=== PATIENT | female | born 1965 | race Caucasian/White ===

== ENCOUNTER 2017-02-21 14:18 | Emergency (ER) | payer SELFPAY ==
[~2017-02-21] VITALS: Ht 165.1 cm; Wt 88.1 kg
[~2017-02-21 14:18] MED LIST: NOHOMEMEDS
[2017-02-21] MEDS ORDERED: EFFEXOR XR150 MG PO (14:27)
[2017-02-21] MEDS ORDERED: ADDERALL20 MG PO (14:27)
[2017-02-21] MEDS ORDERED: GLIMEPIRIDE2 MG PO (14:28)
[2017-02-21] MEDS ORDERED: AMPHETAMINE SAL20 MG PO (14:28)
[2017-02-21] MEDS ORDERED: PROAIR HFA8.5 GM IH (14:29)
[2017-02-21] MEDS ORDERED: FLOVENT 11120 INHALA IH (14:29)
[2017-02-21 14:51] LABS: HEMATOCRIT 46.9 % (36.0-46.0); MCH 28.4 PG (29.0-34.0); MCHC 32.8 G/DL (30.0-36.0); MCV 86.4 FL (83-99); RBC DIS.WIDTH-CV 13.7 % (11.8-14.6); RBC DIS.WIDTH-SD 42.9 % (39-53); RED BLOOD COUNT 5.43 M/uL (3.80-5.20); WHITE BLOOD COUNT 11.9 K/uL (4.1-10.2)
[2017-02-21 15:00] LABS: CHLORIDE 104 mEq/L (99-109); POTASSIUM 4.3 mEq/L (3.7-5.4); SODIUM 139 mEq/L (136-147)
[2017-02-21 15:01] LABS: GLUCOSE 117 mg/dL (70-99)
[2017-02-21 15:03] LABS: ANION GAP 12 MEQ/L (2-14)
[2017-02-21 15:05] LABS: GFR ESTIMATE (CALCULATED) > 59 mL/min/
[2017-02-21 15:06] LABS: UREA NITROGEN (BUN) 22 mg/dL (9-23)
[2017-02-21 15:12] LABS: TROP-I INTERPRETATION NEGATIVE; TROPONIN-I < 0.01 ng/mL (0.0-0.30)
[2017-02-21 15:29] LABS: MEAN PLAT.VOLUME 10.5 uM^3 (9.5-12.4); PLAT.SUFFICIENCY ADEQUATE; PLATELET COUNT 346 K/uL (156-360)
[2017-02-21 16:17] VITALS: BP 119/76
[2017-02-21 16:31] LABS: TROP-I INTERPRETATION NEGATIVE; TROPONIN-I 0.01 ng/mL (0.0-0.30)
== END 2017-02-21 18:16 | disposition home or self-care (01) ==
LOC: EME 14:18
PROVIDERS: Emergency Medicine
DX: R07.9 Chest pain, unspecified (principal); R00.0 Tachycardia, unspecified; Z87.442 Personal history of urinary calculi
CPT/HCPCS: 71020; 80048; 83880; 84484; 85027; 85379; 93005; 99281; 99285

== ENCOUNTER 2018-03-19 15:43 | Inpatient (IN) | payer BC ==
[~2018-03-19] VITALS: Ht 165.1 cm; Wt 97.1 kg
[~2018-03-19 15:43] MED LIST changes: +ADDERALL20 MG PO; +AMPHETAMINE SAL20 MG PO; +EFFEXOR XR150 MG PO; +FLOVENT 11120 INHALA IH; +GLIMEPIRIDE2 MG PO; +PROAIR HFA8.5 GM IH
[2018-03-19 16:32] LABS: BASOPHIL (%) 1.1 % (0-1); BASOPHIL COUNT 0.1 K/uL (0-0.1); EOSINOPHIL (%) 0.2 % (0-5); HEMATOCRIT 46.1 % (36.0-46.0); HEMOGLOBIN 15.3 G/DL (11.9-15.5); IMMATURE GRANULOCYTE (%) 1.1 % (0.0-0.7); LYMPHOCYTE (%) 12.1 % (15-42); LYMPHOCYTE COUNT 0.8 K/uL (1.0-2.8); MCH 29.8 PG (29.0-34.0); MCHC 33.2 G/DL (30.0-36.0); MCV 89.7 FL (83-99); MONOCYTE (%) 4.3 % (3-12); MONOCYTE COUNT 0.3 K/uL (0-0.8); NEUTROPHIL (%) 81.2 % (45-76); NEUTROPHIL COUNT 5.1 K/uL (1.8-6.4); PLATELET COUNT 278 K/uL (156-360); RBC DIS.WIDTH-CV 13.5 % (11.8-14.6); RBC DIS.WIDTH-SD 44.3 % (39-53); RED BLOOD COUNT 5.14 M/uL (3.80-5.20); WHITE BLOOD COUNT 6.3 K/uL (4.1-10.2)
[2018-03-19 16:35] LABS: APPEARANCE CLEAR ((CLEAR)); BILIRUBIN NEGATIVE; BLOOD NEGATIVE; COLOR YELLOW ((YELLOW)); GLUCOSE (STRIP) NEGATIVE; KETONES NEGATIVE; LEUKOCYTES NEGATIVE; NITRITE NEGATIVE; PROTEIN (STRIP) 30; SPECIFIC GRAVITY 1.023 (1.000-1.030); UCUL ADDED? NO; UROBILINOGEN 0.2 MG/DL (0.2-1.0)
[2018-03-19 16:44] LABS: ALBUMIN 3.8 g/dL (3.2-4.8)
[2018-03-19 16:45] LABS: CHLORIDE 105 mEq/L (99-109); POTASSIUM 4.3 mEq/L (3.7-5.4); SODIUM 137 mEq/L (136-147)
[2018-03-19 16:47] LABS: GLUCOSE 162 mg/dL (70-99); TOTAL PROTEIN 7.6 g/dL (6.4-8.3)
[2018-03-19 16:49] LABS: TOTAL BILIRUBIN 0.2 mg/dL (0.0-1.0)
[2018-03-19 16:50] LABS: ALKALINE PHOSPHATASE 92 IU/L (3-129)
[2018-03-19 16:51] LABS: CREATININE 0.9 mg/dL (0.6-1.3); GFR ESTIMATE (CALCULATED) > 59 mL/min/
[2018-03-19 16:52] LABS: AST (GOT) 43 IU/L (2-34); UREA NITROGEN (BUN) 13 mg/dL (9-23)
[2018-03-19] MEDS ORDERED: DEXTROAMP-AMPHE30 MG PO (16:52)
[2018-03-19] MEDS ORDERED: VENLAFAXINE HCL75 M3 PO (16:52)
[2018-03-19] MEDS ORDERED: VITAMIN D35000 UNIT PO (16:53)
[2018-03-19] MEDS ORDERED: BACTROBAN OINTM22 GM TP (16:53)
[2018-03-19 16:54] LABS: ALT (GPT) 40 IU/L (3-49)
[2018-03-19] MEDS ORDERED: LO-DOSE ASPIRIN81 M1 PO (16:54)
[2018-03-19] MEDS ORDERED: ALLEGRA ALLERG180 MG PO (16:54)
[2018-03-19] MEDS ORDERED: ONE DAILY1 EAC3 PO (16:54)
[2018-03-19 20:20] LABS: ERTH.SED.RATE 52 MM/HR (0-20)
[2018-03-19 20:32] LABS: C-REACTIVE PROTEIN 32.5 MG/L (0-10)
[2018-03-19 20:46] LABS: TROP-I INTERPRETATION NEGATIVE; TROPONIN-I < 0.01 ng/mL (0.0-0.30)
[2018-03-19 21:00] VITALS: BP 121/64
[2018-03-20 00:58] VITALS: BP 95/54
[2018-03-20 04:52] VITALS: BP 117/64
[2018-03-20 07:27] VITALS: BP 110/68
[2018-03-20 11:35] VITALS: BP 122/67
[2018-03-20 15:27] VITALS: BP 114/68
[2018-03-20 20:30] VITALS: BP 122/68
[2018-03-21] VITALS (7 sets, daily range): BP systolic 106–132; BP diastolic 57–67
[2018-03-21 03:57] LABS: HEMATOCRIT 40.4 % (36.0-46.0); HEMOGLOBIN 13.6 G/DL (11.9-15.5); MCH 29.6 PG (29.0-34.0); MCHC 33.7 G/DL (30.0-36.0); MCV 87.8 FL (83-99); NRBC (%) 0.2 /100 WBC (0-0); PLATELET COUNT 238 K/uL (156-360); RBC DIS.WIDTH-CV 13.6 % (11.8-14.6); WHITE BLOOD COUNT 12.1 K/uL (4.1-10.2)
[2018-03-21 04:06] LABS: CHLORIDE 106 mEq/L (99-109); POTASSIUM 3.7 mEq/L (3.7-5.4); SODIUM 137 mEq/L (136-147)
[2018-03-21 04:09] LABS: GLUCOSE 262 mg/dL (70-99)
[2018-03-21 04:11] LABS: CREATININE 0.8 mg/dL (0.6-1.3); GFR ESTIMATE (CALCULATED) > 59 mL/min/
[2018-03-21 04:12] LABS: UREA NITROGEN (BUN) 14 mg/dL (9-23)
[2018-03-21 04:55] LABS: ABS NEUTROPHIL COUNT 10.8; ATYPICAL LYMPHOCYTE 1.7 %; BURR CELLS 1+; EOSINOPHIL ABS CT 0; GIANT PLATELETS 2+; LYMPHOCYTES 7.8 % (15.0-45.0); METAMYELOCYTES 0.9 %; NUCLEATED RBC'S 0.9; PLAT.SUFFICIENCY ADEQUATE; SEG.NEUTROPHILS 62.6 % (46.0-76.0); TOX.VACUOLIZATION 2+; TOXIC GRANULATION 1+
[2018-03-21 06:21] LABS: BASE EXCESS -4.4 mEq/L (-3 to +3); BICARBONATE 18.8 mEq/L (22-26); CARBOXY HGB 1.5 % (0-5); COMMENTS - BLOOD GASES C+; DEVICE VENTI; FI02 50 %; METHEMOGLOBIN 1.2 % (0-1.5); O2 FLOW 10 L/MIN; O2 SATURATION (CALCULATED) 95.6 % (95-99); PCO2 29 mm Hg (35-45); PO2 65 mm Hg (80-100); SITE RR; pH 7.42 (7.35-7.45)
[2018-03-21 06:46] LABS: TROP-I INTERPRETATION NEGATIVE; TROPONIN-I 0.02 ng/mL (0.0-0.30)
[2018-03-21 07:19] LABS: TROP-I INTERPRETATION NEGATIVE; TROPONIN-I < 0.01 ng/mL (0.0-0.30)
[2018-03-21 07:23] LABS: CHLORIDE 106 MEQ/L (99-109); CREATININE 0.7 MG/DL (0.6-1.3); GFR ESTIMATE (CALCULATED) > 59 mL/min/; GLUCOSE 178 mg/dL (70-99); POTASSIUM 4.2 MEQ/L (3.7-5.4); SODIUM 134 MEQ/L (136-147); UREA NITROGEN (BUN) 14 mg/dL (9-23)
[2018-03-22] VITALS (7 sets, daily range): BP systolic 92–107; BP diastolic 51–65
[2018-03-22 08:21] LABS: HEMATOCRIT 39.5 % (36.0-46.0); HEMOGLOBIN 12.9 G/DL (11.9-15.5); MCH 28.9 PG (29.0-34.0); MCHC 32.7 G/DL (30.0-36.0); MCV 88.4 FL (83-99); PLATELET COUNT 199 K/uL (156-360); RBC DIS.WIDTH-CV 14.1 % (11.8-14.6); RBC DIS.WIDTH-SD 45.5 % (39-53); RED BLOOD COUNT 4.47 M/uL (3.80-5.20); WHITE BLOOD COUNT 12.7 K/uL (4.1-10.2)
[2018-03-22 08:50] LABS: ABS NEUTROPHIL COUNT 10.1; ANISOCYTOSIS 1+; ATYPICAL LYMPHOCYTE 1.7 %; BAND NEUTROPHILS 18.3 % (0-8.0); CHLORIDE 103 MEQ/L (99-109); CREATININE 0.6 MG/DL (0.6-1.3); EOSINOPHIL ABS CT 0; GFR ESTIMATE (CALCULATED) > 59 mL/min/; GLUCOSE 183 mg/dL (70-99); LYMPHOCYTES 17.4 % (15.0-45.0); MONOCYTES 1.7 % (0-9.0); PLAT.SUFFICIENCY ADEQUATE; POIKILOCYTOSIS 1+; POLYCHROMASIA 1+; POTASSIUM 3.8 MEQ/L (3.7-5.4); SEG.NEUTROPHILS 60.9 % (46.0-76.0); SODIUM 136 MEQ/L (136-147); UREA NITROGEN (BUN) 10 mg/dL (9-23)
[2018-03-23 04:22] VITALS: BP 98/56
[2018-03-23 07:26] VITALS: BP 103/57
[2018-03-23 11:44] VITALS: BP 99/62
[2018-03-23 16:19] VITALS: BP 100/60
[2018-03-23 21:06] VITALS: BP 112/75
[2018-03-23 23:56] VITALS: BP 103/55
[2018-03-24 03:49] VITALS: BP 116/64
[2018-03-24 07:07] VITALS: BP 114/56
[2018-03-24 11:32] VITALS: BP 113/60
[2018-03-24 16:13] VITALS: BP 103/60
[2018-03-24 19:45] VITALS: BP 129/71
[2018-03-24 23:15] VITALS: BP 121/64
[2018-03-25 03:45] VITALS: BP 108/58
[2018-03-25 07:06] VITALS: BP 116/55
[2018-03-25 11:10] VITALS: BP 120/74
[2018-03-25 15:22] VITALS: BP 141/55
[2018-03-25 19:58] VITALS: BP 126/73
[2018-03-26] VITALS (7 sets, daily range): BP systolic 117–135; BP diastolic 58–75
[2018-03-27 04:02] VITALS: BP 130/70
[2018-03-27 06:49] LABS: HEMATOCRIT 38.6 % (36.0-46.0); HEMOGLOBIN 12.4 G/DL (11.9-15.5); MCH 28.9 PG (29.0-34.0); MCHC 32.1 G/DL (30.0-36.0); NRBC (%) 0.4 /100 WBC (0-0); RBC DIS.WIDTH-SD 45.7 % (39-53); RED BLOOD COUNT 4.29 M/uL (3.80-5.20); WHITE BLOOD COUNT 22.3 K/uL (4.1-10.2)
[2018-03-27 06:56] LABS: PLATELET COUNT 509 K/uL (156-360)
[2018-03-27 07:07] LABS: CHLORIDE 105 MEQ/L (99-109); CREATININE 0.5 MG/DL (0.6-1.3); GFR ESTIMATE (CALCULATED) > 59 mL/min/; GLUCOSE 172 mg/dL (70-99); SODIUM 140 MEQ/L (136-147); UREA NITROGEN (BUN) 10 mg/dL (9-23)
[2018-03-27 07:08] LABS: POTASSIUM 4.7 MEQ/L (3.7-5.4)
[2018-03-27 07:45] VITALS: BP 120/66
[2018-03-27 11:45] VITALS: BP 124/68
[2018-03-27 15:22] VITALS: BP 158/77
[2018-03-27 19:31] VITALS: BP 119/70
[2018-03-28 00:02] VITALS: BP 127/60
[2018-03-28 03:26] VITALS: BP 145/78
[2018-03-28 05:38] LABS: HEMATOCRIT 37.5 % (36.0-46.0); MCH 28.6 PG (29.0-34.0); MCV 89.5 FL (83-99); NRBC (%) 0.7 /100 WBC (0-0); PLATELET COUNT 594 K/uL (156-360); RBC DIS.WIDTH-CV 13.9 % (11.8-14.6); RED BLOOD COUNT 4.19 M/uL (3.80-5.20); WHITE BLOOD COUNT 12.8 K/uL (4.1-10.2)
[2018-03-28 07:35] LABS: CHLORIDE 100 MEQ/L (99-109); CREATININE 0.6 MG/DL (0.6-1.3); GFR ESTIMATE (CALCULATED) > 59 mL/min/; POTASSIUM 5.1 MEQ/L (3.7-5.4); SODIUM 136 MEQ/L (136-147); UREA NITROGEN (BUN) 14 mg/dL (9-23)
[2018-03-28 07:37] LABS: GLUCOSE 376 mg/dL (70-99)
[2018-03-28 07:39] VITALS: BP 128/74
[2018-03-28 09:11] LABS: THYROTROPIN (TSH) 2.3 MIU/L (0.4-5.5)
[2018-03-28 11:17] VITALS: BP 125/70
[2018-03-28 20:30] VITALS: BP 118/61
[2018-03-28 23:22] VITALS: BP 125/73
[2018-03-29 04:31] VITALS: BP 120/68
[2018-03-29 08:42] VITALS: BP 141/79
[2018-03-29 10:36] LABS: HEMATOCRIT 35.2 % (36.0-46.0); HEMOGLOBIN 11.3 G/DL (11.9-15.5); MCH 28.9 PG (29.0-34.0); MCHC 32.1 G/DL (30.0-36.0); NRBC (%) 0.4 /100 WBC (0-0); PLATELET COUNT 604 K/uL (156-360); RBC DIS.WIDTH-CV 14.1 % (11.8-14.6); RBC DIS.WIDTH-SD 45.9 % (39-53); RED BLOOD COUNT 3.91 M/uL (3.80-5.20)
[2018-03-29 10:58] LABS: CHLORIDE 101 MEQ/L (99-109); CREATININE 0.6 MG/DL (0.6-1.3); GFR ESTIMATE (CALCULATED) > 59 mL/min/; GLUCOSE 340 mg/dL (70-99); POTASSIUM 4.1 MEQ/L (3.7-5.4); SODIUM 136 MEQ/L (136-147); UREA NITROGEN (BUN) 15 mg/dL (9-23)
[2018-03-29 11:30] VITALS: BP 137/89
[2018-03-29 15:59] VITALS: BP 158/73
[2018-03-29 19:45] VITALS: BP 134/77
[2018-03-29 23:30] VITALS: BP 134/72
[2018-03-30 03:43] VITALS: BP 128/76
[2018-03-30 06:51] LABS: HEMATOCRIT 37.8 % (36.0-46.0); HEMOGLOBIN 12.1 G/DL (11.9-15.5); MCH 28.8 PG (29.0-34.0); NRBC (%) 0.3 /100 WBC (0-0); PLATELET COUNT 641 K/uL (156-360); WHITE BLOOD COUNT 18.3 K/uL (4.1-10.2)
[2018-03-30 06:57] LABS: PTT 25.2 SEC (25-37)
[2018-03-30 07:10] LABS: CHLORIDE 104 MEQ/L (99-109); CREATININE 0.6 MG/DL (0.6-1.3); GFR ESTIMATE (CALCULATED) > 59 mL/min/; GLUCOSE 302 mg/dL (70-99); SODIUM 137 MEQ/L (136-147); UREA NITROGEN (BUN) 19 mg/dL (9-23)
[2018-03-30 07:57] VITALS: BP 119/64
[2018-03-30 12:03] VITALS: BP 140/72
[2018-03-30 15:57] VITALS: BP 132/65
[2018-03-30 19:10] VITALS: BP 117/59
[2018-03-30 23:37] VITALS: BP 131/64
[2018-03-31 05:03] VITALS: BP 118/58
[2018-03-31 08:10] VITALS: BP 127/71
[2018-03-31 12:04] LABS: TYPE OF FLUID PLEURAL
[2018-03-31 12:27] VITALS: BP 126/71
[2018-03-31 12:44] LABS: APPEARANCE SL. HAZY-YELLOW; BODY FLUID RBC'S 1000 /MM^3 (0-100); BODY FLUID WBC'S 1225 /MM^3 (0-500)
[2018-03-31 13:04] LABS: HEMATOCRIT 38.4 % (36.0-46.0); HEMOGLOBIN 12.2 G/DL (11.9-15.5); MCH 28.8 PG (29.0-34.0); MCHC 31.8 G/DL (30.0-36.0); MCV 90.8 FL (83-99); NRBC (%) 0.2 /100 WBC (0-0); PLATELET COUNT 677 K/uL (156-360); RBC DIS.WIDTH-SD 46.3 % (39-53); RED BLOOD COUNT 4.23 M/uL (3.80-5.20); WHITE BLOOD COUNT 12.7 K/uL (4.1-10.2)
[2018-03-31 13:23] LABS: CHLORIDE 101 MEQ/L (99-109); CREATININE 0.5 MG/DL (0.6-1.3); GFR ESTIMATE (CALCULATED) > 59 mL/min/; GLUCOSE 278 mg/dL (70-99); POTASSIUM 4.8 MEQ/L (3.7-5.4); SODIUM 136 MEQ/L (136-147); UREA NITROGEN (BUN) 19 mg/dL (9-23)
[2018-03-31 13:44] LABS: BODY FLUID GLUCOSE 226 MG/DL; BODY FLUID LDH 127 IU/L
[2018-03-31 13:50] LABS: BODY FLUID PROTEIN < 3.0 G/DL
[2018-03-31 14:09] LABS: BODY FLUID EOSINOPHILS 0 % (0-25); MONONUCLEAR WBC'S 86 %; POLYNUCLEAR WBC'S 15 % (0-25)
[2018-03-31 15:38] VITALS: BP 102/56
[2018-03-31 20:04] VITALS: BP 122/66
[2018-03-31 23:42] VITALS: BP 136/72
[2018-04-01 03:21] VITALS: BP 124/67
[2018-04-01 06:12] LABS: HEMATOCRIT 34.4 % (36.0-46.0); HEMOGLOBIN 11.2 G/DL (11.9-15.5); MCH 29.4 PG (29.0-34.0); MCHC 32.6 G/DL (30.0-36.0); MCV 90.3 FL (83-99); NRBC (%) 0.2 /100 WBC (0-0); PLATELET COUNT 672 K/uL (156-360); RBC DIS.WIDTH-CV 13.9 % (11.8-14.6); RBC DIS.WIDTH-SD 45.3 % (39-53); RED BLOOD COUNT 3.81 M/uL (3.80-5.20); WHITE BLOOD COUNT 18.5 K/uL (4.1-10.2)
[2018-04-01 06:40] LABS: CHLORIDE 102 MEQ/L (99-109); CREATININE 0.6 MG/DL (0.6-1.3); GFR ESTIMATE (CALCULATED) > 59 mL/min/; GLUCOSE 239 mg/dL (70-99); POTASSIUM 4.2 MEQ/L (3.7-5.4); SODIUM 139 MEQ/L (136-147); UREA NITROGEN (BUN) 21 mg/dL (9-23)
[2018-04-01 08:41] VITALS: BP 124/76
[2018-04-01 11:52] VITALS: BP 138/80
[2018-04-01 15:51] VITALS: BP 109/55
[2018-04-01 19:46] VITALS: BP 114/55
[2018-04-01 21:19] LABS: Neutrophil Cytoplasmic Aby Negative (Negative)
[2018-04-01 23:39] VITALS: BP 115/56
[2018-04-02 03:29] VITALS: BP 127/65
[2018-04-02 06:55] LABS: HEMATOCRIT 35.2 % (36.0-46.0); HEMOGLOBIN 11.3 G/DL (11.9-15.5); MCH 29.5 PG (29.0-34.0); MCHC 32.1 G/DL (30.0-36.0); MCV 91.9 FL (83-99); NRBC (%) 0.1 /100 WBC (0-0); PLATELET COUNT 667 K/uL (156-360); RBC DIS.WIDTH-CV 14.2 % (11.8-14.6); RBC DIS.WIDTH-SD 47.2 % (39-53); RED BLOOD COUNT 3.83 M/uL (3.80-5.20); WHITE BLOOD COUNT 16.8 K/uL (4.1-10.2)
[2018-04-02 07:15] LABS: CHLORIDE 101 MEQ/L (99-109); CREATININE 0.6 MG/DL (0.6-1.3); GFR ESTIMATE (CALCULATED) > 59 mL/min/; GLUCOSE 194 mg/dL (70-99); POTASSIUM 4.4 MEQ/L (3.7-5.4); SODIUM 137 MEQ/L (136-147); UREA NITROGEN (BUN) 19 mg/dL (9-23)
[2018-04-02 07:43] VITALS: BP 122/75
[2018-04-02 11:50] VITALS: BP 122/69
[2018-04-02 15:46] VITALS: BP 114/70
[2018-04-02 19:47] VITALS: BP 127/65
[2018-04-02 23:27] VITALS: BP 131/83
[2018-04-03 04:10] VITALS: BP 126/76
[2018-04-03 07:03] VITALS: BP 131/57
[2018-04-03] MEDS ORDERED: LEVOFLOXACIN750 MG PO (09:46)
[2018-04-03] MEDS ORDERED: LOPRESSOR25 MG PO (09:48)
[2018-04-03] MEDS ORDERED: MUCINEX600 MG PO (09:50)
[2018-04-03] MEDS ORDERED: XOPENEX0.63 MG/3 IH (09:51)
[2018-04-03] MEDS ORDERED: LEVEMIR100 UNIT/2 SC (09:51)
[2018-04-03] MEDS ORDERED: DULERA 100 MCG/13 GM IH (09:56)
== END 2018-04-03 11:29 | disposition home or self-care (01) | DRG 853 ==
LOC: EME 15:43 → EDOF 19:04 → 4EAST 19:04 → 2EAST 19:04 → ENRESERV 19:05 → 4EAST 20:43 → ENRESERV 03-22 15:54 → 2EAST 03-22 17:53
PROVIDERS: Emergency Medicine; Family Medicine; Hospitalist; Internal Medicine; Internal Medicine Pulmonary Disease
PROC: 0B9D8ZX Drainage of Right Middle Lung Lobe, Via Natural or Artificial Opening Endoscopic, Diagnostic (ICD-10-PCS; principal; 2018-03-28)
PROC: 0B9C8ZX Drainage of Right Upper Lung Lobe, Via Natural or Artificial Opening Endoscopic, Diagnostic (ICD-10-PCS; principal; 2018-03-28)
PROC: 0W993ZX Drainage of Right Pleural Cavity, Percutaneous Approach, Diagnostic (ICD-10-PCS; 2018-03-31)
DX: A41.9 Sepsis, unspecified organism (principal); J18.9 Pneumonia, unspecified organism; J90 Pleural effusion, not elsewhere classified; J45.901 Unspecified asthma with (acute) exacerbation; E11.65 Type 2 diabetes mellitus with hyperglycemia; B37.0 Candidal stomatitis; R09.02 Hypoxemia; S20.469A Insect bite (nonvenomous) of unspecified back wall of thorax, initial encounter; W57.XXXA Bitten or stung by nonvenomous insect and other nonvenomous arthropods, initial encounter; I49.8 Other specified cardiac arrhythmias; E78.5 Hyperlipidemia, unspecified; J40 Bronchitis, not specified as acute or chronic; F32.9 Major depressive disorder, single episode, unspecified; F90.9 Attention-deficit hyperactivity disorder, unspecified type; J30.2 Other seasonal allergic rhinitis; E66.9 Obesity, unspecified; Z68.32 Body mass index [BMI] 32.0-32.9, adult; Z90.81 Acquired absence of spleen; Z85.71 Personal history of Hodgkin lymphoma; Z86.718 Personal history of other venous thrombosis and embolism; Z87.442 Personal history of urinary calculi; Z79.84 Long term (current) use of oral hypoglycemic drugs
CPT/HCPCS: 36600; 70450; 71045; 71046; 71260; 71275; 74177; 76942; 80048; 80048 91; 80053; 80202; 81003; 82803; 82945; 82948; 83605; 83615 91; 83880; 83986 90; 84157; 84443; 84484; 85025; 85027; 85610; 85651; 85730; 86021 90; 86038; 86140; 87040; 87070; 87075; 87116; 87205; 87206; 87278; 87449; 88108; 88305; 89051; 93005; 94010; 94640; 94640 76; 94667; 94668; 94760; 94799; 99202; 99281; 99285; C1753; J0290; J0456; J0692; J0696; J1100; J1644; J1815; J1885; J1940; J2250; J2310; J2543; J2930; J3010; J3370; J7030; J7050; J7512; S0030